=== PATIENT | male | born 1960 | race Caucasian/White ===

== ENCOUNTER 2019-12-17 09:55 | Day surgery (SDC) | payer BC ==
[~2019-12-17] VITALS: Ht 177.8 cm; Wt 68.9 kg
[2019-12-17] MEDS ORDERED: ATORVASTATIN CA10 M1 (10:20)
[2019-12-17] MEDS ORDERED: LISI20 (10:21)
== END 2019-12-17 11:41 | disposition home or self-care (01) ==
LOC: ORSCSDS 09:55
PROVIDERS: Surgery
PROC: 0DJD8ZZ Inspection of Lower Intestinal Tract, Via Natural or Artificial Opening Endoscopic (ICD-10-PCS; principal; 2019-12-17 11:00)
DX: Z12.11 Encounter for screening for malignant neoplasm of colon (principal); K57.30 Diverticulosis of large intestine without perforation or abscess without bleeding; Z83.71 Family history of colonic polyps; I10 Essential (primary) hypertension; E78.5 Hyperlipidemia, unspecified; Z79.899 Other long term (current) drug therapy
CPT/HCPCS: J2704; J7120